=== PATIENT | female | born 1985 | race Caucasian/White ===

== ENCOUNTER 2021-07-27 09:55 | Day surgery (SDC) | payer BC, OTHER ==
[2021-07-19 14:50] VITALS: BMI 26.5
[2021-07-27] MEDS ORDERED: SCOPOLAMINE HYDROBROMIDE 1 PATCH PATCH.TD72 ONE (11:39)
[2021-07-27] MEDS ORDERED: MIDAZOLAM HCL 2 MG/2 ML SINGLE DOSE VIAL ONE (11:47)
[2021-07-27] MEDS ORDERED: PROPOFOL 20 ML ONE ×2 (11:47→12:29)
[2021-07-27] MEDS ORDERED: ROPIVACAINE HCL 0.5% 30ML VIAL ONE (12:10)
[2021-07-27] MEDS ORDERED: DEXAMETHASONE SOD PHOSPHATE 4 MG/1 ML VIAL ONE (12:16)
[2021-07-27] MEDS ORDERED: KETOROLAC TROMETHAMINE 30 MG/1 ML VIAL ONE (12:16)
[2021-07-27] MEDS ORDERED: oxyCODONE HCL 5 MG TABLET PO PRN ×2 (13:00)
[2021-07-27] MEDS ORDERED: PROMETHAZINE HCL 25 MG/1 ML VIAL IVPUSH PRN (13:00)
[2021-07-27] MEDS ORDERED: ONDANSETRON 4 MG/2 ML VIAL IVPUSH PRN (13:00)
[2021-07-27] MEDS ORDERED: ACETAMINOPHEN INJECTION 100 ML IVPB ONE (13:17)
[2021-07-27] MEDS ORDERED: ACETAMINOPHEN 1000 MG/100 ML BAG IVPB ONE (13:18)
[2021-07-27 13:57] VITALS: TEMP 97.9
[2021-07-27 14:17] VITALS: BP 116/76; PULSE 66
== END 2021-07-27 14:18 | disposition home or self-care (01) ==
LOC: FASU 09:55
PROVIDERS: ATTEND Orthopaedic Surgery Hand Surgery
PROC: 0RBP4ZZ Excision of Left Wrist Joint, Percutaneous Endoscopic Approach (ICD-10-PCS; principal; 2021-07-27 12:02)
DX: S63.592A Other specified sprain of left wrist, initial encounter (principal); X58.XXXA Exposure to other specified factors, initial encounter; Y93.9 Activity, unspecified; Y92.9 Unspecified place or not applicable
CPT/HCPCS: 84703; 94760; J0131

== ENCOUNTER 2022-05-23 15:10 | Emergency (ER) | payer SELFPAY ==
[2022-05-23 15:34] VITALS: BP 122/76; PULSE 65; RESP 18; TEMP 98.2; BMI 27.4
[2022-05-23] MEDS ORDERED: ACETAMINOPHEN 325 MG TABLET (FP) PO ONE (16:21)
[2022-05-23] MEDS ORDERED: LIDOCAINE 5% TOPICAL PATCH TP ONE (16:22)
[2022-05-23] MEDS ORDERED: ACETAMINOPHEN 325 MG TABLET (FP) ONE (16:23)
[2022-05-23] MEDS ORDERED: LIDOCAINE 5% TOPICAL PATCH ONE (16:23)
[2022-05-23 16:43] LABS: EPITHELIAL CELLS FEW /hpf
[2022-05-23] MEDS ORDERED: LIDOCAINE PATCH REMOVAL MC SCH (22:00)
== END 2022-05-23 17:30 | disposition home or self-care (01) ==
LOC: FER 15:10
DX: M54.42 Lumbago with sciatica, left side (principal)
CPT/HCPCS: 81003; 81015; 84703; 99283-25